=== PATIENT | male | born 1965 | race Caucasian/White ===

== ENCOUNTER 2017-09-11 22:01 | Emergency (ER) | payer SELFPAY ==
[2017-09-11 22:07] VITALS: BP 134/73; PULSE 80; TEMP 98.5; BMI 20.7
--- NOTE | 2017-09-11 22:15 | PDOC ---
History of Present Illness - General Chief Complaint: Pain, Acute Stated Complaint: RT LEG PAIN Time Seen by Provider: 09/11/17 22:11 History Source: Patient Exam Limitations: No Limitations - History of Present Illness Initial Comments: 09/11/17 22:28 This is a 52-year-old male who comes in complaining of right hip and leg pain. Patient denies history of similar pain in the past. Patient said he stepped out of his truck and felt a slight twinge in the area of his hip and back and it has progressively over the last several hours gotten worse to the point that he no longer can bear weight or ambulate. Patient says his radiation with some associated numbness down the leg to about the mid calf area. Patient denies history of low back pain in the past sciatica or similar pain. Patient took a Percocet and some Aleve without result prior to coming in PAST MEDICAL HISTORY: no significant history PAST SURGICAL HISTORY: no significant history FAMILY HISTORY: no pertinant history SOCIAL HISTORY: Pt lives with family and is employed. MEDICATIONS: reviewed ALLERGIES: As per nursing notes Review of Systems General: No fevers or chills, no weakness, no weight loss HEENT: No change in vision. No sore throat,. No ear pain CardioVascular: No chest pain or shortness of breath Respiratory:No cough, or wheezing. Gastrointestinal: no nausea, vomitting, diarrhea or constipation, No rectal bleeding Genitourinary: No dysuria, hematuria, or frequency Musculoskeletal: Low back pain and right hip pain Neurologic: No headache, vertigo, dizziness or loss of consciousness Psychiatric: nor depression Skin: No rashes or easy bruising Endocrine: no increased thirst or abnormal weight change Allergic: no skin or latex allergy All other systems reviewed and normal GENERAL: The patient is awake, alert, and fully oriented, in no acute distress. HEAD: Normal with no signs of trauma. EYES: Pupils equal, round and reactive to light, extraocular movements intact, sclera anicteric, conjunctiva clear. BACK: There is tenderness on palpation over the right sciatic notch area there is no tenderness on palpation of the sacrum or lumbar area HIP: There is tenderness on palpation over the lateral hip there is decreased range of motion of the hip secondary to pain neurovascular distal is intact EXTREMITIES: Normal range of motion, no edema. NEUROLOGICAL: Normal speech, normal gait. grossly intact PSYCH: Normal mood, normal affect. SKIN: Warm, Dry, normal turgor, no rashes or lesions noted. Medical decision making: This is a 52-year-old male who comes in complaining of right hip/low back pain radiating down his leg post twisting his hip/back when getting out of a truck. There is tenderness over the right sciatic notch as well as a right hip area with markedly decreased range of motion. We'll get X rays of the lumbar sacral spine as well as right hip Will medicate with Motrin and Valium. We will reassess and follow up on x-rays 09/11/17 23:20 Reassessment: Patient given Motrin and Valium approximately an hour ago with much improvement in his pain. Patient now able to move his hip and leg somewhat but still complains of discomfort with movement. X-ray shows questionable avulsion fracture off of the greater trochanter versus some calcification in the area. We'll obtain CT of right hip to rule out fracture. Assessment and plan: This is a 52-year-old male who comes in complaining of the right hip and low back pain radiating down his right leg. Patient had acute onset of progressive pain this evening after getting out of a truck. Patient said that he alex his back when he got out but otherwise did not feel any pain immediately and it has gotten progressively worse. Patient denies history of similar pain in the past. Patient had x-rays at that shows some questionable calcification versus a small avulsion fracture off the greater trochanter. A CT was then performed of the hip that showed the at to just be some calcification and no acute fractures of the hip. Patient was given Valium and an anti-inflammatory in the emergency room and prescriptions were sent to his pharmacy for Valium and Motrin. Patient was given referral to an orthopedist for follow-up. Patient was able to ambulate with an antalgic gait on discharge Past History - Past Medical History Allergies/Adverse Reactions: Allergies Allergy/AdvReac Type Severity Reaction Status Date / Time No Known Drug Allergies Allergy Verified 09/11/17 22:33 BEE STINGS Allergy Uncoded 03/29/13 12:23 Home Medications: Ambulatory Orders No Home Medications 0 dose .ROUTE UTDICT 03/29/13 Diazepam [Valium] 5 mg PO Q6H #24 tablet MDD 4 09/12/17 COPD: No Other medical history: CERVICAL SPINE PROBLEMS - Suicide/Smoking/Psychosocial Hx Smoking Status: Yes Smoking History: Current every day smoker Years of Tobacco Use: 30 Number of Cigarettes Smoked Daily: 20 Information on smoking cessation initiated: Yes 'Breaking Loose' booklet given: 09/11/17 *Physical Exam - Vital Signs Last Vital Signs Temp Pulse Resp BP Pulse Ox 98.5 F 80 18 134/73 99 09/11/17 22:04 09/11/17 22:04 09/11/17 22:04 09/11/17 22:04 09/11/17 22:04 *DC/Admit/Observation/Transfer Diagnosis at time of Disposition: Sciatica Qualifiers: Laterality: right Qualified Code(s): M54.31 - Sciatica, right side - Discharge Dispostion Disposition: HOME Condition at time of disposition: Stable Admit: No - Prescriptions Prescriptions: Diazepam [Valium] 5 mg PO Q6H #24 tablet MDD 4 - Referrals Referrals: Chilo Duron MD [Primary Care Provider] - - Patient Instructions Printed Discharge Instructions: DI for Back Pain With Sciatica Additional Instructions: For the pain take ibuprofen 600 mg alternating with Tylenol 1000 mg every 4 hours. In addition to that you can also take Valium 5 mg 3 times a day if needed for spasm. Note the Valium will make you tired and difficult to concentrate so do not take it if you have to work, drive a car doing anything that requires your concentration. Return to the emergency department immediately with ANY new, persistent or worsening symptoms. Continue any medications as previously prescribed by your physician. You should follow up with your primary doctor as soon as possible regarding today's emergency department visit. . Please make sure your doctor reviews the results of your emergency evaluation. Thank you for coming to the Emergency Department today for your care. It was a pleasure to see you today. Please note that your evaluation is INCOMPLETE until you follow-up with your doctor. - Post Discharge Activity
[2017-09-11] MEDS ORDERED: KETOROLAC TROMETHAMINE 60 MG/2 ML VIAL IM ONE (22:22)
[2017-09-11] MEDS ORDERED: diazePAM 5 MG TABLET PO STA (22:26)
== END 2017-09-12 00:46 | disposition home or self-care (01) ==
LOC: FER 22:01
PROC: 3E0233Z Introduction of Anti-inflammatory into Muscle, Percutaneous Approach (ICD-10-PCS; principal; 2017-09-11)
DX: M54.31 Sciatica, right side (principal); F17.210 Nicotine dependence, cigarettes, uncomplicated
CPT/HCPCS: 72100-TC-FY; 73523-TC; 73700-TC-RT; 99282-25